=== PATIENT | female | born 1945 | race Caucasian/White ===

== ENCOUNTER 2019-06-06 09:37 | Inpatient (IN) ==
[2019-06-06] MEDS ORDERED: HYDROmorphone 2 MG/1 ML VIAL IV STA (10:55)
[2019-06-06] MEDS ORDERED: ONDANSETRON 4 MG/2 ML VIAL IV ONE (10:55)
[2019-06-06] MEDS ORDERED: HYDROmorphone 2 MG/1 ML VIAL ONE (10:57)
[2019-06-06] MEDS ORDERED: ONDANSETRON 4 MG/2 ML VIAL IV PRN (12:35)
[2019-06-06] MEDS ORDERED: DOCUSATE SODIUM 100 MG CAPSULE PO PRN (12:35)
[2019-06-06 16:12] LABS: Basophils % 0.3 % (0.0-0.8); Eosinophils # 0.1 10*3/uL (0.0-0.87); Eosinophils % 0.6 % (0.00-10.9); Hematocrit 45.9 VOL% (35.7-47.0); Hemoglobin 14.7 GM/DL (12.0-16.0); Immature Granulocytes % 0.2 %; Immature Granulocytes Absolute 0.03 #; Lymphocytes # 2.3 10*3/uL (1.4-4.0); Lymphocytes % 19.2 % (21.3-54.2); Mean Corpuscular Volume 94.3 FL (87-102); Mean Platelet Volume 10.7 FL (9.6-12.0); Monocytes % 10.7 % (1.7-12.7); Platelet Count 179 T/CUMM (130-400); Red Blood Count 4.87 MC/CUMM (3.8-5.5); Red Cell Distribution Width 14.9 % (9.3-17.3); White Blood Count 12.1 T/CUMM (4-12)
[2019-06-06 16:30] LABS: Osmolality,Calculated 283.1 MOS/KG (273-304)
[2019-06-07 05:17] LABS: Basophils % 0.4 % (0.0-0.8); Eosinophils # 0.1 10*3/uL (0.0-0.87); Eosinophils % 1.1 % (0.00-10.9); Hemoglobin 13.6 GM/DL (12.0-16.0); Immature Granulocytes % 0.2 %; Immature Granulocytes Absolute 0.02 #; Lymphocytes # 2.4 10*3/uL (1.4-4.0); Lymphocytes % 24.2 % (21.3-54.2); Mean Corpuscular HGB Conc 32.4 GM/DL (32-36); Mean Corpuscular Volume 93.1 FL (87-102); Mean Platelet Volume 10.4 FL (9.6-12.0); Monocytes % 13.7 % (1.7-12.7); Neutrophils % 60.4 % (38.7-73.9); Platelet Count 153 T/CUMM (130-400); Red Blood Count 4.51 MC/CUMM (3.8-5.5)
[2019-06-07 05:43] LABS: Calcium 8.9 MG/DL (8.5-10.1); Osmolality,Calculated 277.5 MOS/KG (273-304)
[2019-06-07] MEDS ORDERED: BACITRACIN OINT 0.9 GM PACK TOP ONE (06:22)
[2019-06-07] MEDS ORDERED: CLINDAMYCIN INJ 600 MG in PREMIX 1 EACH IV ONE (07:30)
[2019-06-07] MEDS ORDERED: ROPIVACAINE 0.5% 30 ML VIAL ONE (07:38)
[2019-06-07] MEDS ORDERED: LIDOCAINE 1% 5 ML VIAL ONE (07:38)
[2019-06-07] MEDS ORDERED: MIDAZOLAM 2 MG/2 ML VIAL ONE (07:39)
[2019-06-07] MEDS ORDERED: DEXAMETHASONE 4 MG/1 ML VIAL ONE (07:39)
[2019-06-07] MEDS ORDERED: fentaNYL 100 MCG/2 ML VIAL ONE (07:39)
[2019-06-07] MEDS ORDERED: LACTATED RINGERS 1,000 ML IV SCH (08:00)
[2019-06-07] MEDS ORDERED: BUPIVACAINE 0.5% 50 ML VIAL ONE (08:06)
[2019-06-07] MEDS ORDERED: PANTOPRAZOLE 40 MG TABLET PO SCH (09:00)
[2019-06-07] MEDS ORDERED: NF- (Fluticasone Furoate-Vilanterol [Breo Ellipta] 1 PUFF) INH PRN (09:52)
[2019-06-07] MEDS ORDERED: BENZONATATE 100 MG CAPSULE PO PRN (09:52)
[2019-06-07] MEDS ORDERED: KETOROLAC 15 MG/1 ML VIAL IV PRN (09:56)
[2019-06-07] MEDS ORDERED: MAGNESIUM HYDROXIDE SUSP 30 ML UDCUP PO PRN (09:56)
[2019-06-07] MEDS ORDERED: MORPHINE 4 MG/1 ML VIAL IV PRN (09:56)
[2019-06-07] MEDS ORDERED: diphenhydrAMINE CAP 25 MG CAPSULE PO PRN (09:56)
[2019-06-07] MEDS ORDERED: SEVOFLURANE 1 UNIT/15 MINUTE INH ONE (09:59)
[2019-06-07] MEDS ORDERED: ETOMIDATE 40 MG/20 ML VIAL IV ONE (09:59)
[2019-06-07] MEDS ORDERED: LIDOCAINE 2% 5 ML VIAL ONE (09:59)
[2019-06-07] MEDS ORDERED: ONDANSETRON 4 MG/2 ML VIAL ONE (09:59)
[2019-06-07] MEDS ORDERED: PHENYLEPHRINE 1 MG/10 ML SYRINGE IV ONE (09:59)
[2019-06-07] MEDS ORDERED: PROPOFOL 200 MG/20 ML VIAL IV ONE (09:59)
[2019-06-07] MEDS: LACTATED RINGERS 1,000 ML IV SCH ×2 (14:40→23:43)
[2019-06-07] MEDS: ESCITALOPRAM 10 MG TABLET PO SCH ×2 (20:16)
[2019-06-07] MEDS: MONTELUKAST 10 MG TABLET PO SCH (20:16)
[2019-06-07] MEDS: AZELASTINE NASAL 137 MCG/SPRAY 30 ML BOTTLE BOTH NARES SCH (20:17)
[2019-06-07] MEDS: CLORAZEPATE 3.75 MG TABLET PO PRN (20:18)
[2019-06-08] MEDS: FONDAPARINUX 2.5 MG/0.5 ML SYRINGE SUBCUT SCH (03:07)
[2019-06-08 05:19] LABS: Osmolality,Calculated 271.1 MOS/KG (273-304)
[2019-06-08 05:52] LABS: Basophils % 0.2 % (0.0-0.8); Eosinophils # 0.1 10*3/uL (0.0-0.87); Hematocrit 29.7 VOL% (35.7-47.0); Hemoglobin 9.5 GM/DL (12.0-16.0); Immature Granulocytes % 0.2 %; Immature Granulocytes Absolute 0.02 #; Lymphocytes # 1.9 10*3/uL (1.4-4.0); Lymphocytes % 19.3 % (21.3-54.2); Mean Corpuscular Volume 95.5 FL (87-102); Mean Platelet Volume 10.9 FL (9.6-12.0); Monocytes % 14.6 % (1.7-12.7); Neutrophils % 64.7 % (38.7-73.9); Platelet Count 104 T/CUMM (130-400); Red Blood Count 3.11 MC/CUMM (3.8-5.5); Red Cell Distribution Width 14.5 % (9.3-17.3); White Blood Count 10.1 T/CUMM (4-12)
[2019-06-08] MEDS: LEVOTHYROXINE 50 MCG TABLET PO SCH (06:06)
[2019-06-08] MEDS: LACTATED RINGERS 1,000 ML IV SCH ×2 (07:10→16:09)
[2019-06-08] MEDS ORDERED: BIOTIN 1 MG PO SCH (09:00)
[2019-06-08] MEDS: MONTELUKAST 10 MG TABLET PO SCH ×2 (09:25→20:25)
[2019-06-08] MEDS: ATORVASTATIN 10 MG TABLET PO SCH (09:26)
[2019-06-08] MEDS: CALCIUM (CARBONATE) 600 MG TABLET PO SCH (09:26)
[2019-06-08] MEDS: CHOLECALCIFEROL 1,000 UNIT TABLET PO SCH (09:26)
[2019-06-08] MEDS: MULTIVITAMIN (CENTRUM) TABLET PO SCH (09:26)
[2019-06-08] MEDS: PANTOPRAZOLE 40 MG TABLET PO SCH (09:26)
[2019-06-08] MEDS: DOCUSATE SODIUM 100 MG CAPSULE PO SCH (09:26)
[2019-06-08] MEDS: AZELASTINE NASAL 137 MCG/SPRAY 30 ML BOTTLE BOTH NARES SCH ×2 (09:27→20:27)
[2019-06-08] MEDS: FLUTICASONE 50 MCG NASAL SPRAY 16 GM BOTTLE BOTH NARES SCH (09:31)
[2019-06-08] MEDS: ESCITALOPRAM 10 MG TABLET PO SCH ×2 (20:24)
[2019-06-08] MEDS: CLORAZEPATE 3.75 MG TABLET PO PRN (20:25)
[2019-06-09] MEDS: FONDAPARINUX 2.5 MG/0.5 ML SYRINGE SUBCUT SCH (03:10)
[2019-06-09 05:57] LABS: Basophils % 0.4 % (0.0-0.8); Eosinophils # 0.3 10*3/uL (0.0-0.87); Hematocrit 33.1 VOL% (35.7-47.0); Hemoglobin 10.8 GM/DL (12.0-16.0); Immature Granulocytes % 0.2 %; Immature Granulocytes Absolute 0.02 #; Lymphocytes # 2.1 10*3/uL (1.4-4.0); Lymphocytes % 23.3 % (21.3-54.2); Mean Corpuscular HGB Conc 32.6 GM/DL (32-36); Mean Corpuscular Volume 92.5 FL (87-102); Mean Platelet Volume 11.4 FL (9.6-12.0); Monocytes % 12.9 % (1.7-12.7); Neutrophils % 60.2 % (38.7-73.9); Platelet Count 122 T/CUMM (130-400); Red Blood Count 3.58 MC/CUMM (3.8-5.5); Red Cell Distribution Width 14.5 % (9.3-17.3)
[2019-06-09 06:24] LABS: Calcium 8.1 MG/DL (8.5-10.1); Osmolality,Calculated 280.3 MOS/KG (273-304)
[2019-06-09] MEDS: LEVOTHYROXINE 50 MCG TABLET PO SCH (06:24)
[2019-06-09] MEDS: LACTATED RINGERS 1,000 ML IV SCH ×2 (07:15→12:39)
[2019-06-09 07:31] VITALS: BP 126/55
[2019-06-09] MEDS ORDERED: methylPREDNISolone 4 MG TABLET PO SCH (09:00)
[2019-06-09] MEDS: FLUTICASONE 50 MCG NASAL SPRAY 16 GM BOTTLE BOTH NARES SCH (09:59)
[2019-06-09] MEDS: AZELASTINE NASAL 137 MCG/SPRAY 30 ML BOTTLE BOTH NARES SCH (09:59)
[2019-06-09] MEDS: MULTIVITAMIN (CENTRUM) TABLET PO SCH (10:00)
[2019-06-09] MEDS: DOCUSATE SODIUM 100 MG CAPSULE PO SCH (10:00)
[2019-06-09] MEDS: PANTOPRAZOLE 40 MG TABLET PO SCH (10:00)
[2019-06-09] MEDS: MONTELUKAST 10 MG TABLET PO SCH (10:00)
[2019-06-09] MEDS: CALCIUM (CARBONATE) 600 MG TABLET PO SCH (10:01)
[2019-06-09] MEDS: ATORVASTATIN 10 MG TABLET PO SCH (10:01)
[2019-06-09] MEDS: CHOLECALCIFEROL 1,000 UNIT TABLET PO SCH (10:01)
== END 2019-06-09 12:25 | disposition home health service (06) | DRG 510 ==
LOC: EDUNIT# → EDBD → N.ED 09:37 → N.EDINP 12:36 → N.3E 15:05
PROVIDERS: ADMIT Internal Medicine; ATTEND Internal Medicine

== ENCOUNTER 2021-06-24 13:51 | Inpatient (IN) ==
[2021-06-24 14:20] LABS: Basophils % 0.1 % (0.0-0.8); Hematocrit 46.1 VOL% (35.7-47.0); Immature Granulocytes % 0.2 %; Immature Granulocytes Absolute 0.04 #; Lymphocytes # 1.9 10*3/uL (1.4-4.0); Lymphocytes % 11.4 % (21.3-54.2); Mean Corpuscular HGB Conc 32.5 GM/DL (32-36); Mean Corpuscular Volume 93.7 FL (87-102); Mean Platelet Volume 10.4 FL (9.6-12.0); Monocytes % 10.3 % (1.7-12.7); Platelet Count 207 T/CUMM (130-400); Red Blood Count 4.92 MC/CUMM (3.8-5.5); Red Cell Distribution Width 14.1 % (9.3-17.3); White Blood Count 16.2 T/CUMM (4-12)
[2021-06-24 14:38] LABS: Albumin 3.7 G/DL (3.4-5.0); Bilirubin,Total 0.5 MG/DL (0.20-1.00); Calcium 8.8 MG/DL (8.5-10.1); Osmolality,Calculated 282.4 MOS/KG (273-304); Potassium 4.4 MMOL/L (3.5-5.1); Total Protein 6.3 G/DL (6.4-8.2)
[2021-06-24] MEDS ORDERED: ALBUTEROL NEB SOLN 5 MG/ML 20 ML/BOTTLE CONT NEB STA (15:38)
[2021-06-24] MEDS ORDERED: methylPREDNISolone SOD SUC 125 MG/2 ML VIAL IV STA (15:55)
[2021-06-24 18:07] LABS: Bacteria,Urine Many /HPF (Few); Bilirubin,Urine Negative (Negative); Blood, Urine Negative (Negative); Glucose,Urine (UA) Negative (Negative); Ketones,Urine Negative (Negative); Mucus,Urine Occasional /LPF (Occasional); Nitrite,Urine Negative (Negative); Protein,Urine Negative; RBC,Urine 3 /HPF (0-4); Squamous Epithelial Cell,Urine Occasional /HPF (0-10); Urine Appearance Slightly Hazy (Clear); Urine Color Yellow (Yellow); Urine Specific Gravity 1.023 (1.001-1.035); Urine Urobilinogen < 2.0 EU/DL (0.2-1.0)
[2021-06-24] MEDS ORDERED: guaiFENesin/DM ER 600-30 MG TABLET PO PRN (19:06)
[2021-06-24] MEDS ORDERED: GLUCAGON 1 MG VIAL IM PRN ×2 (19:06)
[2021-06-24] MEDS ORDERED: NICOTINE 21 MG/24 HR PATCH TRANSDERM PRN (19:06)
[2021-06-24] MEDS ORDERED: ACETAMINOPHEN 325 MG TABLET PO PRN (19:06)
[2021-06-24] MEDS ORDERED: ALBUTEROL 2.5 MG/3 ML NEB RESP TX PRN (19:06)
[2021-06-24] MEDS ORDERED: DEXTROSE 50% 25 GM/50 ML VIAL IV PRN ×2 (19:06)
[2021-06-24] MEDS ORDERED: diphenhydrAMINE CAP 25 MG CAPSULE PO PRN (19:06)
[2021-06-24] MEDS ORDERED: DOCUSATE SODIUM 100 MG CAPSULE PO PRN (19:06)
[2021-06-24] MEDS ORDERED: ONDANSETRON 4 MG/2 ML VIAL IV PRN (19:06)
[2021-06-24] MEDS ORDERED: hydrALAZINE 20 MG/1 ML VIAL IV PRN (19:06)
[2021-06-24] MEDS ORDERED: LEVOFLOXACIN INJ 500 MG/100 ML PREMIX IV ONE (21:00)
[2021-06-24] MEDS: HEPARIN 5,000 UNIT/1 ML VIAL SUBCUT SCH (21:47)
[2021-06-24] MEDS: INSULIN LISPRO 100 UNIT/ML SUBCUT SCH (21:47)
[2021-06-24] MEDS ORDERED: ALBUTEROL/IPRATROPIUM 3 ML NEB RESP TX ONE (23:18)
[2021-06-24] MEDS: ALBUTEROL/IPRATROPIUM 3 ML NEB RESP TX SCH (23:41)
[2021-06-25] MEDS: methylPREDNISolone SOD SUC 125 MG/2 ML VIAL IV SCH ×2 (02:43→08:20)
[2021-06-25 04:14] LABS: Basophils % 0.1 % (0.0-0.8); Hematocrit 42.9 VOL% (35.7-47.0); Hemoglobin 13.4 GM/DL (12.0-16.0); Immature Granulocytes % 0.3 %; Immature Granulocytes Absolute 0.03 #; Lymphocytes # 0.8 10*3/uL (1.4-4.0); Lymphocytes % 7.8 % (21.3-54.2); Mean Corpuscular HGB Conc 31.2 GM/DL (32-36); Mean Corpuscular Volume 95.8 FL (87-102); Mean Platelet Volume 10.5 FL (9.6-12.0); Neutrophils % 86.8 % (38.7-73.9); Platelet Count 191 T/CUMM (130-400); Red Blood Count 4.48 MC/CUMM (3.8-5.5); Red Cell Distribution Width 14.2 % (9.3-17.3); White Blood Count 10.5 T/CUMM (4-12)
[2021-06-25 04:43] LABS: Albumin 3.1 G/DL (3.4-5.0); Bilirubin,Total 0.5 MG/DL (0.20-1.00); Calcium 8.9 MG/DL (8.5-10.1); Osmolality,Calculated 286.4 MOS/KG (273-304); Potassium 4.9 MMOL/L (3.5-5.1); Total Protein 5.9 G/DL (6.4-8.2)
[2021-06-25] MEDS: ALBUTEROL/IPRATROPIUM 3 ML NEB RESP TX SCH ×3 (07:25→19:25)
[2021-06-25] MEDS: INSULIN LISPRO 100 UNIT/ML SUBCUT SCH ×4 (09:39→21:21)
[2021-06-25] MEDS: HEPARIN 5,000 UNIT/1 ML VIAL SUBCUT SCH ×2 (09:42→21:21)
[2021-06-25] MEDS: PANTOPRAZOLE 40 MG TABLET PO SCH (09:45)
[2021-06-25] MEDS: methylPREDNISolone SOD SUC 40 MG/1 ML VIAL IV SCH (16:17)
[2021-06-25] MEDS: LEVOFLOXACIN INJ 250 MG/50 ML PREMIX IV SCH (21:21)
[2021-06-25] MEDS: ZALEPLON 5 MG CAPSULE PO PRN (21:21)
[2021-06-26] MEDS: methylPREDNISolone SOD SUC 40 MG/1 ML VIAL IV SCH ×4 (00:21→23:52)
[2021-06-26] MEDS: ALBUTEROL/IPRATROPIUM 3 ML NEB RESP TX SCH ×4 (00:30→19:53)
[2021-06-26 04:59] LABS: Basophils % 0.1 % (0.0-0.8); Hematocrit 42.1 VOL% (35.7-47.0); Hemoglobin 13.6 GM/DL (12.0-16.0); Immature Granulocytes % 0.3 %; Immature Granulocytes Absolute 0.03 #; Lymphocytes # 0.9 10*3/uL (1.4-4.0); Lymphocytes % 7.6 % (21.3-54.2); Mean Corpuscular HGB Conc 32.3 GM/DL (32-36); Mean Corpuscular Volume 95.5 FL (87-102); Mean Platelet Volume 11.1 FL (9.6-12.0); Monocytes % 4.5 % (1.7-12.7); Neutrophils % 87.5 % (38.7-73.9); Platelet Count 184 T/CUMM (130-400); Red Blood Count 4.41 MC/CUMM (3.8-5.5); Red Cell Distribution Width 13.8 % (9.3-17.3); White Blood Count 11.9 T/CUMM (4-12)
[2021-06-26 05:22] LABS: Calcium 8.8 MG/DL (8.5-10.1); Osmolality,Calculated 282.7 MOS/KG (273-304); Potassium 4.4 MMOL/L (3.5-5.1)
[2021-06-26] MEDS: INSULIN LISPRO 100 UNIT/ML SUBCUT SCH ×4 (09:19→20:48)
[2021-06-26] MEDS: HEPARIN 5,000 UNIT/1 ML VIAL SUBCUT SCH ×2 (09:26→20:48)
[2021-06-26] MEDS: PANTOPRAZOLE 40 MG TABLET PO SCH (09:26)
[2021-06-26] MEDS: LEVOFLOXACIN INJ 250 MG/50 ML PREMIX IV SCH (20:48)
[2021-06-26] MEDS: ZALEPLON 5 MG CAPSULE PO PRN (20:48)
[2021-06-27] MEDS: ALBUTEROL/IPRATROPIUM 3 ML NEB RESP TX SCH ×3 (01:47→14:00)
[2021-06-27 04:31] LABS: Basophils % 0.1 % (0.0-0.8); Hematocrit 41.5 VOL% (35.7-47.0); Hemoglobin 13.3 GM/DL (12.0-16.0); Immature Granulocytes % 0.4 %; Immature Granulocytes Absolute 0.04 #; Lymphocytes # 1.1 10*3/uL (1.4-4.0); Lymphocytes % 10.1 % (21.3-54.2); Mean Corpuscular Volume 95.2 FL (87-102); Neutrophils % 81.4 % (38.7-73.9); Platelet Count 186 T/CUMM (130-400); Red Blood Count 4.36 MC/CUMM (3.8-5.5); Red Cell Distribution Width 13.7 % (9.3-17.3); White Blood Count 10.4 T/CUMM (4-12)
[2021-06-27 04:57] LABS: Albumin 2.9 G/DL (3.4-5.0); Bilirubin,Total 0.7 MG/DL (0.20-1.00); Calcium 8.6 MG/DL (8.5-10.1); Osmolality,Calculated 286.4 MOS/KG (273-304); Potassium 4.1 MMOL/L (3.5-5.1); Total Protein 5.6 G/DL (6.4-8.2)
[2021-06-27] MEDS: PANTOPRAZOLE 40 MG TABLET PO SCH (08:40)
[2021-06-27] MEDS: methylPREDNISolone SOD SUC 40 MG/1 ML VIAL IV SCH (08:41)
[2021-06-27] MEDS: HEPARIN 5,000 UNIT/1 ML VIAL SUBCUT SCH (08:42)
[2021-06-27] MEDS: INSULIN LISPRO 100 UNIT/ML SUBCUT SCH ×2 (09:39→11:57)
[2021-06-27 12:54] VITALS: BP 133/55
== END 2021-06-27 16:07 | disposition home health service (06) | DRG 191 ==
LOC: N.ED 13:51 → SUATTDRO 19:06 → N.EDINP 19:06 → N.2W 06-25 12:12
PROVIDERS: ADMIT Internal Medicine; ATTEND Family Medicine

== ENCOUNTER 2022-05-20 16:13 | Inpatient (IN) ==
[2022-05-20 17:03] LABS: Hematocrit 48.4 VOL% (35.7-47.0); Hemoglobin 15.1 GM/DL (12.0-16.0); Immature Granulocytes % 0.4 %; Immature Granulocytes Absolute 0.04 #; Lymphocytes % 8.8 % (21.3-54.2); Mean Corpuscular HGB Conc 31.2 GM/DL (32-36); Mean Corpuscular Volume 98.2 FL (87-102); Mean Platelet Volume 10.5 FL (9.6-12.0); Monocytes # 0.3 10*3/uL (0.11-0.8); Monocytes % 2.3 % (1.7-12.7); Neutrophils % 88.5 % (38.7-73.9); Platelet Count 190 T/CUMM (130-400); Red Blood Count 4.93 MC/CUMM (3.8-5.5); Red Cell Distribution Width 13.9 % (9.3-17.3); White Blood Count 10.9 T/CUMM (4-12)
[2022-05-20 17:20] LABS: PT Patient Result 10.8 SECS (10.1-12.1); Partial Thromboplastin Time 27.1 SECS (23.7-32.9)
[2022-05-20 17:30] LABS: Albumin 3.9 G/DL (3.4-5.0); Bilirubin,Total 0.6 MG/DL (0.20-1.00); Calcium 9.3 MG/DL (8.5-10.1); Osmolality,Calculated 278.7 MOS/KG (273-304); Potassium 4.8 MMOL/L (3.5-5.1); Total Protein 6.8 G/DL (6.4-8.2)
[2022-05-20] MEDS ORDERED: ALBUTEROL 2.5 MG/3 ML NEB RESP TX STA (17:39)
[2022-05-20] MEDS ORDERED: methylPREDNISolone SOD SUC 125 MG/2 ML VIAL IV STA (17:39)
[2022-05-20] MEDS ORDERED: LEVOFLOXACIN INJ 500 MG/100 ML PREMIX IV ONE (18:38)
[2022-05-20] MEDS ORDERED: DEXTROSE 10% 250 ML BAG IV PRN (19:06)
[2022-05-20] MEDS ORDERED: guaiFENesin/DM ER 600-30 MG TABLET PO PRN (19:06)
[2022-05-20] MEDS ORDERED: GLUCAGON 1 MG VIAL IM PRN (19:06)
[2022-05-20] MEDS ORDERED: diphenhydrAMINE CAP 25 MG CAPSULE PO PRN (19:06)
[2022-05-20] MEDS ORDERED: NICOTINE 21 MG/24 HR PATCH TRANSDERM PRN (19:06)
[2022-05-20] MEDS ORDERED: hydrALAZINE 20 MG/1 ML VIAL IV PRN (19:06)
[2022-05-20] MEDS ORDERED: ONDANSETRON 4 MG/2 ML VIAL IV PRN (19:06)
[2022-05-20] MEDS ORDERED: ACETAMINOPHEN 325 MG TABLET PO PRN (19:06)
[2022-05-20] MEDS ORDERED: ZALEPLON 5 MG CAPSULE PO PRN (19:06)
[2022-05-20 19:18] LABS: Urine Color Yellow (Yellow); Urine pH 6.5 (4.5-8.0)
[2022-05-20 19:19] LABS: Bilirubin,Urine Negative (Negative); Blood, Urine Small mg/dL (Negative); Glucose,Urine (UA) Negative (Negative); Ketones,Urine Negative (Negative); Nitrite,Urine Negative (Negative); Protein,Urine Negative (Negative); Urine Specific Gravity <= 1.005 (1.001-1.035)
[2022-05-20] MEDS: BUDESONIDE 0.5 MG/2 ML NEB RESP TX SCH (19:20)
[2022-05-20] MEDS: ARFORMOTEROL 15 MCG/2 ML NEB RESP TX SCH (19:20)
[2022-05-20 19:22] LABS: Bacteria,Urine Occasional /HPF (Few); RBC,Urine 13 /HPF (0-4); Squamous Epithelial Cell,Urine Occasional /HPF (0-10)
[2022-05-20 19:23] LABS: Urine Appearance Slightly Cloudy (Clear)
[2022-05-20] MEDS ORDERED: ENOXAPARIN 40 MG/0.4 ML SYRINGE SUBCUT SCH (21:00)
[2022-05-20] MEDS: ALBUTEROL 2.5 MG/3 ML NEB RESP TX SCH (23:20)
[2022-05-21] MEDS: methylPREDNISolone SOD SUC 125 MG/2 ML VIAL IV SCH ×3 (01:59→17:37)
[2022-05-21] MEDS: ALBUTEROL 2.5 MG/3 ML NEB RESP TX SCH ×6 (03:00→23:31)
[2022-05-21 04:51] LABS: Hematocrit 43.3 VOL% (35.7-47.0); Immature Granulocytes % 0.2 %; Immature Granulocytes Absolute 0.01 #; Lymphocytes # 0.7 10*3/uL (1.4-4.0); Lymphocytes % 14.4 % (21.3-54.2); Mean Corpuscular HGB Conc 32.3 GM/DL (32-36); Mean Corpuscular Volume 96.4 FL (87-102); Mean Platelet Volume 10.7 FL (9.6-12.0); Monocytes # 0.1 10*3/uL (0.11-0.8); Monocytes % 1.2 % (1.7-12.7); Neutrophils % 84.2 % (38.7-73.9); Platelet Count 165 T/CUMM (130-400); Red Blood Count 4.49 MC/CUMM (3.8-5.5); Red Cell Distribution Width 13.8 % (9.3-17.3); White Blood Count 5.1 T/CUMM (4-12)
[2022-05-21 05:10] LABS: Osmolality,Calculated 283.5 MOS/KG (273-304)
[2022-05-21] MEDS: LEVOTHYROXINE 50 MCG TABLET PO SCH (05:48)
[2022-05-21] MEDS: BUDESONIDE 0.5 MG/2 ML NEB RESP TX SCH ×2 (07:24→19:36)
[2022-05-21] MEDS: ARFORMOTEROL 15 MCG/2 ML NEB RESP TX SCH ×2 (07:37→19:36)
[2022-05-21] MEDS: AZELASTINE NASAL 137 MCG/SPRAY 30 ML BOTTLE BOTH NARES SCH ×2 (09:39→21:07)
[2022-05-21] MEDS: hydroCHLOROthiazide 12.5 MG CAPSULE PO SCH ×2 (09:39→21:06)
[2022-05-21] MEDS: POTASSIUM CHLORIDE 10 MEQ TABLET PO SCH (09:39)
[2022-05-21] MEDS: ASPIRIN 325 MG TABLET PO SCH (09:39)
[2022-05-21] MEDS: FLUTICASONE 50 MCG NASAL SPRAY 16 GM BOTTLE BOTH NARES SCH (09:39)
[2022-05-21] MEDS: CALCIUM (CARBONATE) 500 MG TABLET PO SCH (09:39)
[2022-05-21] MEDS: PANTOPRAZOLE 40 MG TABLET PO SCH (09:39)
[2022-05-21] MEDS: MONTELUKAST 10 MG TABLET PO SCH (12:30)
[2022-05-21] MEDS: INSULIN LISPRO 100 UNIT/ML SUBCUT SCH ×2 (17:45→21:07)
[2022-05-21] MEDS: ATORVASTATIN 10 MG TABLET PO SCH (21:06)
[2022-05-21] MEDS: LEVOFLOXACIN INJ 500 MG/100 ML PREMIX IV SCH (21:31)
[2022-05-22] MEDS: methylPREDNISolone SOD SUC 125 MG/2 ML VIAL IV SCH ×3 (01:59→18:01)
[2022-05-22] MEDS: ALBUTEROL 2.5 MG/3 ML NEB RESP TX SCH ×5 (03:36→19:16)
[2022-05-22] MEDS: LEVOTHYROXINE 50 MCG TABLET PO SCH (05:35)
[2022-05-22 05:57] LABS: Hematocrit 43.4 VOL% (35.7-47.0); Hemoglobin 13.9 GM/DL (12.0-16.0); Immature Granulocytes % 0.4 %; Immature Granulocytes Absolute 0.03 #; Lymphocytes # 0.5 10*3/uL (1.4-4.0); Lymphocytes % 5.4 % (21.3-54.2); Mean Corpuscular Volume 96.2 FL (87-102); Mean Platelet Volume 10.9 FL (9.6-12.0); Monocytes # 0.4 10*3/uL (0.11-0.8); Monocytes % 4.7 % (1.7-12.7); Neutrophils % 89.5 % (38.7-73.9); Platelet Count 165 T/CUMM (130-400); Red Blood Count 4.51 MC/CUMM (3.8-5.5); Red Cell Distribution Width 14.1 % (9.3-17.3); White Blood Count 8.5 T/CUMM (4-12)
[2022-05-22 06:06] LABS: PT Patient Result 11.1 SECS (10.1-12.1); Partial Thromboplastin Time 26.6 SECS (23.7-32.9)
[2022-05-22] MEDS: ARFORMOTEROL 15 MCG/2 ML NEB RESP TX SCH ×2 (07:20→19:16)
[2022-05-22] MEDS: BUDESONIDE 0.5 MG/2 ML NEB RESP TX SCH ×2 (07:20→19:16)
[2022-05-22] MEDS ORDERED: BENZONATATE 100 MG CAPSULE PO ONE (07:30)
[2022-05-22] MEDS ORDERED: MEPERIDINE 50 MG/1 ML VIAL IM ONE (07:30)
[2022-05-22] MEDS ORDERED: diphenhydrAMINE 50 MG/1 ML VIAL IM ONE (07:30)
[2022-05-22] MEDS ORDERED: LIDOCAINE 1% 20 ML VIAL MISC INJ ONE (08:00)
[2022-05-22] MEDS ORDERED: LIDOCAINE 2% 20 ML VIAL RESP TX ONE (08:00)
[2022-05-22] MEDS ORDERED: LIDOCAINE 2% VISCOUS 100 ML BOTTLE SWISH/SPIT ONE (08:00)
[2022-05-22] MEDS ORDERED: MIDAZOLAM 2 MG/2 ML VIAL ONE (08:20)
[2022-05-22] MEDS: AZELASTINE NASAL 137 MCG/SPRAY 30 ML BOTTLE BOTH NARES SCH ×2 (09:33→20:45)
[2022-05-22] MEDS: FLUTICASONE 50 MCG NASAL SPRAY 16 GM BOTTLE BOTH NARES SCH (09:33)
[2022-05-22] MEDS: CHOLECALCIFEROL 1,000 UNIT TABLET PO SCH (09:36)
[2022-05-22] MEDS: ASPIRIN 325 MG TABLET PO SCH (09:36)
[2022-05-22] MEDS: CALCIUM (CARBONATE) 500 MG TABLET PO SCH (09:36)
[2022-05-22] MEDS: hydroCHLOROthiazide 12.5 MG CAPSULE PO SCH ×2 (09:36→20:46)
[2022-05-22] MEDS: MONTELUKAST 10 MG TABLET PO SCH (09:36)
[2022-05-22] MEDS: PANTOPRAZOLE 40 MG TABLET PO SCH (09:36)
[2022-05-22] MEDS: POTASSIUM CHLORIDE 10 MEQ TABLET PO SCH (09:36)
[2022-05-22] MEDS: INSULIN LISPRO 100 UNIT/ML SUBCUT SCH ×4 (09:41→20:46)
[2022-05-22] MEDS: ATORVASTATIN 10 MG TABLET PO SCH (20:46)
[2022-05-22] MEDS: LEVOFLOXACIN INJ 500 MG/100 ML PREMIX IV SCH (22:09)
[2022-05-23] MEDS: ALBUTEROL 2.5 MG/3 ML NEB RESP TX SCH ×4 (00:20→11:00)
[2022-05-23] MEDS: methylPREDNISolone SOD SUC 125 MG/2 ML VIAL IV SCH (01:11)
[2022-05-23] MEDS: LEVOTHYROXINE 50 MCG TABLET PO SCH (06:20)
[2022-05-23] MEDS: BUDESONIDE 0.5 MG/2 ML NEB RESP TX SCH (07:11)
[2022-05-23] MEDS: ARFORMOTEROL 15 MCG/2 ML NEB RESP TX SCH (07:11)
[2022-05-23] MEDS: INSULIN LISPRO 100 UNIT/ML SUBCUT SCH ×2 (09:20→15:18)
[2022-05-23] MEDS: FLUTICASONE 50 MCG NASAL SPRAY 16 GM BOTTLE BOTH NARES SCH (09:21)
[2022-05-23] MEDS: POTASSIUM CHLORIDE 10 MEQ TABLET PO SCH (09:21)
[2022-05-23] MEDS: PANTOPRAZOLE 40 MG TABLET PO SCH (09:21)
[2022-05-23] MEDS: hydroCHLOROthiazide 12.5 MG CAPSULE PO SCH (09:21)
[2022-05-23] MEDS: AZELASTINE NASAL 137 MCG/SPRAY 30 ML BOTTLE BOTH NARES SCH (09:21)
[2022-05-23] MEDS: CALCIUM (CARBONATE) 500 MG TABLET PO SCH (09:21)
[2022-05-23] MEDS: MONTELUKAST 10 MG TABLET PO SCH (09:21)
[2022-05-23] MEDS: CHOLECALCIFEROL 1,000 UNIT TABLET PO SCH (09:21)
[2022-05-23] MEDS: ASPIRIN 325 MG TABLET PO SCH (09:38)
[2022-05-23 12:17] VITALS: BP 142/58
[2022-05-24] MEDS ORDERED: predniSONE 20 MG TABLET PO SCH (09:00)
[2022-05-24] MEDS ORDERED: LEVOFLOXACIN 500 MG TABLET PO SCH (09:00)
[2022-05-26 08:31] LABS: M. Tuberculosis PCR Result Negative (Negative); M. Tuberculosis PCR Source BRONCH WASH
== END 2022-05-23 15:45 | disposition home or self-care (01) | DRG 191 ==
LOC: N.ED 16:13 → N.EDINP 19:06 → N.TELEN 22:25
PROVIDERS: ADMIT Hospitalist; ATTEND Hospitalist

== ENCOUNTER 2022-07-22 14:53 | Observation (INO) ==
[2022-07-22 16:56] LABS: Bilirubin,Urine Negative (Negative); Glucose,Urine (UA) Negative (Negative); Ketones,Urine 15 mg/dL (Negative); Nitrite,Urine Negative (Negative); Protein,Urine Negative (Negative); Urine Appearance Slightly Cloudy (Clear); Urine Color Yellow (Yellow); Urine Specific Gravity 1.025 (1.001-1.035); Urine pH 5.5 (4.5-8.0)
[2022-07-22 16:57] LABS: Blood, Urine Moderate mg/dL (Negative); Urine Urobilinogen 0.2 eU/dL (<2.0)
[2022-07-22 17:01] LABS: Mucus,Urine Occasional /LPF (Occasional); RBC,Urine 14 /HPF (0-4); Squamous Epithelial Cell,Urine Occasional /HPF (0-10)
[2022-07-22 17:42] LABS: Basophils % 0.1 % (0.0-0.8); Hematocrit 42.3 VOL% (35.7-47.0); Immature Granulocytes % 0.4 %; Immature Granulocytes Absolute 0.05 #; Lymphocytes # 2.3 10*3/uL (1.4-4.0); Lymphocytes % 16.5 % (21.3-54.2); Mean Corpuscular HGB Conc 33.1 GM/DL (32-36); Mean Corpuscular Volume 94.6 FL (87-102); Mean Platelet Volume 10.9 FL (9.6-12.0); Monocytes # 1.5 10*3/uL (0.11-0.8); Platelet Count 201 T/CUMM (130-400); Red Blood Count 4.47 MC/CUMM (3.8-5.5); Red Cell Distribution Width 13.7 % (9.3-17.3); White Blood Count 13.8 T/CUMM (4-12)
[2022-07-22 18:03] LABS: Alanine Aminotransferase 26 U/L (13-56); Albumin 3.7 G/DL (3.4-5.0); Alkaline Phosphatase 50 U/L (45-117); Aspartate Amino Transferase 12 U/L (0-37); Bilirubin,Total < 0.39 MG/DL (0.20-1.00); Blood Urea Nitrogen 22 MG/DL (7-18); Calcium 9.3 MG/DL (8.5-10.1); Carbon Dioxide 27 MMOL/L (21-32); Chloride 107 MMOL/L (98-107); Glucose 134 MG/DL (74-106); Potassium 4.1 MMOL/L (3.5-5.1); Sodium 143 MMOL/L (136-145); Total Protein 6.8 G/DL (6.4-8.2)
[2022-07-22] MEDS ORDERED: SODIUM CHLORIDE 0.9% 1,000 ML IV STA (18:57)
[2022-07-22] MEDS ORDERED: LEVOFLOXACIN INJ 500 MG/100 ML PREMIX IV STA (18:57)
[2022-07-22] MEDS ORDERED: ACETAMINOPHEN 325 MG TABLET PO PRN (20:10)
[2022-07-22] MEDS ORDERED: ONDANSETRON 4 MG/2 ML VIAL IV PRN (20:10)
[2022-07-22] MEDS: SODIUM CHLORIDE 0.45% 1,000 ML IV SCH (23:00)
[2022-07-22] MEDS: ENOXAPARIN 40 MG/0.4 ML SYRINGE SUBCUT SCH (23:52)
[2022-07-23] MEDS: ALBUTEROL 2.5 MG/3 ML NEB RESP TX SCH ×4 (00:18→19:15)
[2022-07-23 05:40] LABS: Basophils % 0.2 % (0.0-0.8); Hematocrit 38.6 VOL% (35.7-47.0); Hemoglobin 12.6 GM/DL (12.0-16.0); Immature Granulocytes % 0.2 %; Immature Granulocytes Absolute 0.02 #; Lymphocytes % 31.7 % (21.3-54.2); Mean Corpuscular HGB Conc 32.6 GM/DL (32-36); Mean Corpuscular Volume 95.8 FL (87-102); Mean Platelet Volume 10.7 FL (9.6-12.0); Monocytes # 0.9 10*3/uL (0.11-0.8); Neutrophils % 57.9 % (38.7-73.9); Platelet Count 166 T/CUMM (130-400); Red Blood Count 4.03 MC/CUMM (3.8-5.5); Red Cell Distribution Width 13.8 % (9.3-17.3); White Blood Count 9.4 T/CUMM (4-12)
[2022-07-23 06:04] LABS: Calcium 8.9 MG/DL (8.5-10.1); Osmolality,Calculated 288.8 MOS/KG (273-304)
[2022-07-23] MEDS: SODIUM CHLORIDE 0.45% 1,000 ML IV SCH ×3 (08:10→20:03)
[2022-07-23] MEDS: CIPROFLOXACIN INJ 400 MG/200 ML PREMIX IV SCH (08:15)
[2022-07-23] MEDS: PHENAZOPYRIDINE 95 MG TABLET PO SCH ×3 (08:15→16:09)
[2022-07-23] MEDS ORDERED: PANTOPRAZOLE 40 MG TABLET PO SCH (09:00)
[2022-07-23] MEDS ORDERED: BENZONATATE 100 MG CAPSULE PO PRN (10:20)
[2022-07-23] MEDS ORDERED: CLORAZEPATE 7.5 MG TABLET PO PRN (10:20)
[2022-07-23] MEDS ORDERED: ALBUTEROL 2.5 MG/3 ML NEB RESP TX PRN (10:20)
[2022-07-23] MEDS ORDERED: ACETAMINOPHEN/CODEINE 300-30 MG TABLET PO PRN (10:20)
[2022-07-23] MEDS ORDERED: clonazePAM 0.5 MG TABLET PO PRN (10:20)
[2022-07-23] MEDS ORDERED: ALBUTEROL/IPRATROPIUM 3 ML NEB RESP TX PRN (10:20)
[2022-07-23] MEDS ORDERED: LEVOFLOXACIN INJ 500 MG/100 ML PREMIX IV ONE (17:27)
[2022-07-23] MEDS: ENOXAPARIN 40 MG/0.4 ML SYRINGE SUBCUT SCH (20:29)
[2022-07-23] MEDS: MONTELUKAST 10 MG TABLET PO SCH (20:29)
[2022-07-23] MEDS: AZELASTINE NASAL 137 MCG/SPRAY 30 ML BOTTLE BOTH NARES SCH (20:50)
[2022-07-23] MEDS ORDERED: ATORVASTATIN 10 MG TABLET PO SCH (21:00)
[2022-07-23] MEDS ORDERED: ESCITALOPRAM 10 MG TABLET PO SCH (21:00)
[2022-07-24] MEDS: ALBUTEROL 2.5 MG/3 ML NEB RESP TX SCH ×2 (00:05→06:55)
[2022-07-24] MEDS: CIPROFLOXACIN INJ 400 MG/200 ML PREMIX IV SCH (02:40)
[2022-07-24] MEDS: SODIUM CHLORIDE 0.45% 1,000 ML IV SCH (04:21)
[2022-07-24] MEDS ORDERED: LEVOFLOXACIN INJ 500 MG/100 ML PREMIX IV ONE (06:00)
[2022-07-24] MEDS ORDERED: LEVOTHYROXINE 50 MCG TABLET PO SCH (06:30)
[2022-07-24] MEDS ORDERED: PANTOPRAZOLE 40 MG TABLET PO SCH (09:00)
[2022-07-24] MEDS ORDERED: CYANOCOBALAMIN 500 MCG TABLET PO SCH (09:00)
[2022-07-24] MEDS ORDERED: ASPIRIN 325 MG TABLET PO SCH (09:00)
[2022-07-24] MEDS ORDERED: methylPREDNISolone 4 MG TABLET PO SCH (09:00)
[2022-07-24] MEDS ORDERED: ASCORBIC ACID 500 MG TABLET PO SCH (09:00)
[2022-07-24] MEDS ORDERED: CALCIUM (CARBONATE) 500 MG TABLET PO SCH (09:00)
[2022-07-24] MEDS ORDERED: MULTIVITAMIN (CENTRUM) TABLET PO SCH (09:00)
[2022-07-24] MEDS ORDERED: CHOLECALCIFEROL 1,000 UNIT TABLET PO SCH (09:00)
[2022-07-24] MEDS ORDERED: FLUTICASONE 50 MCG NASAL SPRAY 16 GM BOTTLE BOTH NARES SCH (09:00)
[2022-07-24] MEDS ORDERED: fentaNYL 100 MCG/2 ML VIAL ONE (09:28)
[2022-07-24] MEDS ORDERED: propofoL 200 MG/20 ML VIAL IV ONE (09:44)
[2022-07-24] MEDS ORDERED: ETOMIDATE 40 MG/20 ML VIAL IV ONE (09:44)
[2022-07-24] MEDS ORDERED: ONDANSETRON 4 MG/2 ML VIAL ONE (09:44)
[2022-07-24] MEDS ORDERED: LIDOCAINE 2% 5 ML VIAL ONE (09:44)
[2022-07-24] MEDS: MONTELUKAST 10 MG TABLET PO SCH (11:34)
[2022-07-24] MEDS: AZELASTINE NASAL 137 MCG/SPRAY 30 ML BOTTLE BOTH NARES SCH (11:36)
[2022-07-24] MEDS: PHENAZOPYRIDINE 95 MG TABLET PO SCH ×2 (11:45→11:48)
[2022-07-24] MEDS ORDERED: ALBUTEROL/IPRATROPIUM 3 ML NEB RESP TX SCH (13:00)
[2022-07-24 14:18] VITALS: BP 131/68
== END 2022-07-24 14:02 | disposition home or self-care (01) ==
LOC: N.ED 14:53 → N.EDINP 14:53 → SUATTDRO 20:10 → N.CC 22:45
PROVIDERS: ADMIT Internal Medicine; ATTEND Internal Medicine

== ENCOUNTER 2022-09-16 10:12 | Inpatient (IN) ==
[2022-09-16] MEDS ORDERED: SODIUM CHLORIDE 0.9% 1,000 ML IV STA (10:46)
[2022-09-16 12:08] LABS: Mucus,Urine Occasional /LPF (Occasional); RBC,Urine <1 /HPF (0-4)
[2022-09-16 12:09] LABS: Urine Appearance Clear (Clear); Urine Color Yellow (Yellow)
[2022-09-16 12:10] LABS: Bilirubin,Urine Negative (Negative); Blood, Urine Negative (Negative); Glucose,Urine (UA) Negative (Negative); Ketones,Urine Negative (Negative); Nitrite,Urine Negative (Negative); Protein,Urine Negative (Negative); Urine Urobilinogen < 2.0 eU/dL (<2.0); Urine pH 5.5 (4.5-8.0)
[2022-09-16 12:17] LABS: Barbiturates Screen,Urine Negative (Negative); Benzodiazepines Screen,Urine Positive (Negative); Cannabinoid Screen,Urine Negative (Negative); Opiate Screen,Urine Positive (Negative); Phencyclidine Screen,Urine Negative (Negative)
[2022-09-16 12:21] LABS: Albumin 3.2 G/DL (3.4-5.0); Bilirubin,Total 0.6 MG/DL (0.20-1.00); Calcium 8.9 MG/DL (8.5-10.1); Osmolality,Calculated 279.4 MOS/KG (273-304); Potassium 4.1 MMOL/L (3.5-5.1); Thyroid Stimulating Hormone 0.618 uIU/ml (0.358-3.74); Total Protein 6.4 G/DL (6.4-8.2)
[2022-09-16 12:34] LABS: Basophils % 0.1 % (0.0-0.8); Hematocrit 38.5 VOL% (35.7-47.0); Hemoglobin 12.6 GM/DL (12.0-16.0); Immature Granulocytes % 0.2 %; Immature Granulocytes Absolute 0.02 #; Lymphocytes # 1.6 10*3/uL (1.4-4.0); Lymphocytes % 16.9 % (21.3-54.2); Mean Corpuscular HGB Conc 32.7 GM/DL (32-36); Mean Corpuscular Volume 95.1 FL (87-102); Monocytes # 1.3 10*3/uL (0.11-0.8); Monocytes % 13.7 % (1.7-12.7); Neutrophils % 69.1 % (38.7-73.9); Platelet Count 177 T/CUMM (130-400); Red Blood Count 4.05 MC/CUMM (3.8-5.5); Red Cell Distribution Width 13.6 % (9.3-17.3); White Blood Count 9.6 T/CUMM (4-12)
[2022-09-16] MEDS ORDERED: ONDANSETRON 4 MG/2 ML VIAL IV PRN (13:48)
[2022-09-16] MEDS ORDERED: SODIUM CHLORIDE 0.9% 1,000 ML IV SCH (14:00)
[2022-09-16] MEDS ORDERED: ALBUTEROL 2.5 MG/3 ML NEB RESP TX PRN (15:35)
[2022-09-16] MEDS: ALBUTEROL/IPRATROPIUM 3 ML NEB RESP TX SCH ×2 (18:55→22:40)
[2022-09-16] MEDS: LIFITEGRAST 5% BOTH EYES SCH (21:10)
[2022-09-16] MEDS: ESCITALOPRAM 10 MG TABLET PO SCH (21:10)
[2022-09-16] MEDS: MONTELUKAST 10 MG TABLET PO SCH (21:10)
[2022-09-16] MEDS: ATORVASTATIN 10 MG TABLET PO SCH (21:10)
[2022-09-17] MEDS: ALBUTEROL/IPRATROPIUM 3 ML NEB RESP TX SCH ×6 (02:15→23:05)
[2022-09-17 05:30] LABS: Basophils % 0.1 % (0.0-0.8); Hematocrit 37.9 VOL% (35.7-47.0); Immature Granulocytes % 0.5 %; Immature Granulocytes Absolute 0.04 #; Lymphocytes # 1.9 10*3/uL (1.4-4.0); Mean Corpuscular HGB Conc 31.7 GM/DL (32-36); Mean Corpuscular Volume 97.2 FL (87-102); Mean Platelet Volume 9.9 FL (9.6-12.0); Monocytes # 1.2 10*3/uL (0.11-0.8); Monocytes % 15.8 % (1.7-12.7); Neutrophils % 58.6 % (38.7-73.9); Platelet Count 149 T/CUMM (130-400); Red Cell Distribution Width 13.6 % (9.3-17.3); White Blood Count 7.7 T/CUMM (4-12)
[2022-09-17 05:52] LABS: Lymphocytes 23 % (20-55); Total Cells Counted 100
[2022-09-17 05:53] LABS: Platelet Estimate Adequate
[2022-09-17 06:02] LABS: Calcium 8.2 MG/DL (8.5-10.1); Osmolality,Calculated 278.3 MOS/KG (273-304); Potassium 3.8 MMOL/L (3.5-5.1); Risk Ratio 2.39
[2022-09-17] MEDS: CALCIUM (CARBONATE) 500 MG TABLET PO SCH (10:25)
[2022-09-17] MEDS: ASCORBIC ACID 500 MG TABLET PO SCH (10:25)
[2022-09-17] MEDS: ASPIRIN 325 MG TABLET PO SCH (10:25)
[2022-09-17] MEDS: LEVOTHYROXINE 50 MCG TABLET PO SCH (10:26)
[2022-09-17] MEDS: methylPREDNISolone 4 MG TABLET PO SCH (10:26)
[2022-09-17] MEDS: PANTOPRAZOLE 40 MG TABLET PO SCH (10:26)
[2022-09-17] MEDS: CHOLECALCIFEROL 1,000 UNIT TABLET PO SCH (10:26)
[2022-09-17] MEDS: MONTELUKAST 10 MG TABLET PO SCH ×2 (10:27→21:51)
[2022-09-17] MEDS: Fluticasone Furoate-Vilanterol [Breo Ellipta] 100-25 mcg/dose INH SCH (10:32)
[2022-09-17] MEDS: LIFITEGRAST 5% BOTH EYES SCH ×2 (10:33→21:50)
[2022-09-17] MEDS ORDERED: MAGNESIUM SULF RIDER 2 GM/50 ML PREMIX IV ONE (11:00)
[2022-09-17] MEDS: ESCITALOPRAM 10 MG TABLET PO SCH (21:50)
[2022-09-17] MEDS: ATORVASTATIN 10 MG TABLET PO SCH (21:50)
[2022-09-18] MEDS: ALBUTEROL/IPRATROPIUM 3 ML NEB RESP TX SCH ×3 (02:15→10:45)
[2022-09-18 05:48] LABS: Basophils % 0.1 % (0.0-0.8); Hematocrit 38.2 VOL% (35.7-47.0); Hemoglobin 12.3 GM/DL (12.0-16.0); Immature Granulocytes % 0.4 %; Immature Granulocytes Absolute 0.03 #; Lymphocytes # 1.8 10*3/uL (1.4-4.0); Lymphocytes % 21.9 % (21.3-54.2); Mean Corpuscular HGB Conc 32.2 GM/DL (32-36); Mean Corpuscular Volume 95.7 FL (87-102); Mean Platelet Volume 10.7 FL (9.6-12.0); Monocytes # 1.2 10*3/uL (0.11-0.8); Monocytes % 14.2 % (1.7-12.7); Neutrophils % 63.4 % (38.7-73.9); Platelet Count 173 T/CUMM (130-400); Red Blood Count 3.99 MC/CUMM (3.8-5.5); Red Cell Distribution Width 13.4 % (9.3-17.3); White Blood Count 8.3 T/CUMM (4-12)
[2022-09-18 06:14] LABS: Calcium 8.9 MG/DL (8.5-10.1); Osmolality,Calculated 282.1 MOS/KG (273-304); Potassium 3.4 MMOL/L (3.5-5.1)
[2022-09-18] MEDS ORDERED: POTASSIUM BICARB EFFERVESCENT 20 MEQ TAB.EFF PER TUBE PRN (06:31)
[2022-09-18] MEDS ORDERED: POTASSIUM CHLORIDE 20 MEQ TABLET PO ONE (08:00)
[2022-09-18] MEDS: methylPREDNISolone 4 MG TABLET PO SCH (09:04)
[2022-09-18] MEDS: CALCIUM (CARBONATE) 500 MG TABLET PO SCH (09:05)
[2022-09-18] MEDS: ASCORBIC ACID 500 MG TABLET PO SCH (09:05)
[2022-09-18] MEDS: LEVOTHYROXINE 50 MCG TABLET PO SCH (09:05)
[2022-09-18] MEDS: MONTELUKAST 10 MG TABLET PO SCH (09:05)
[2022-09-18] MEDS: ASPIRIN 325 MG TABLET PO SCH (09:05)
[2022-09-18] MEDS: CHOLECALCIFEROL 1,000 UNIT TABLET PO SCH (09:05)
[2022-09-18] MEDS: PANTOPRAZOLE 40 MG TABLET PO SCH (10:01)
[2022-09-18] MEDS: Fluticasone Furoate-Vilanterol [Breo Ellipta] 100-25 mcg/dose INH SCH (11:15)
[2022-09-18] MEDS: LIFITEGRAST 5% BOTH EYES SCH (11:15)
[2022-09-18 12:35] VITALS: BP 127/64
[2022-09-18] MEDS ORDERED: DICLOFENAC 1% GEL 100 GM TUBE TOP SCH (17:00)
== END 2022-09-18 14:35 | disposition home or self-care (01) | DRG 553 ==
LOC: N.ED 10:12 → N.2E 10:12 → SUATTDRO 13:48 → N.2E 16:43 → SUATTDRO 09-17 08:41
PROVIDERS: ADMIT Internal Medicine; ATTEND Internal Medicine